=== PATIENT | male | born 1935 | race Two or more races ===

== ENCOUNTER 2020-01-07 13:42 | Inpatient (IN) | payer MEDICARE, BC ==
[~2020-01-07] VITALS: Ht 177.8 cm; Wt 49.7 kg
[~2020-01-07 13:42] MED LIST: HYDR25TA6 PO; LISI-167 PO
[2020-01-07 14:56] VITALS: BP 110/72
[2020-01-07] MEDS ORDERED: PLEASE ENTER HEIGHT AND WEIGHT MC SCH (15:00)
[2020-01-07] MEDS ORDERED: POLYETHYLENE GLYCOL 17 GM PACKET PO PRN (15:00)
[2020-01-07] MEDS ORDERED: BISACODYL 10 MG SUPP PR PRN (15:00)
[2020-01-07] MEDS ORDERED: DOCUSATE 100 MG CAPSULE PO PRN (15:00)
[2020-01-07] MEDS ORDERED: ONDANSETRON ODT 4 MG PO PRN (15:00)
[2020-01-07 18:22] LABS: CHOL/HDL RATIO 4.3; FREE T4 (FREE THYROXINE) 1.09 ng/dL (0.76-1.46); LDL/HDL RATIO 2.4 (0.5-3.0)
[2020-01-07 19:40] VITALS: BP 172/70
[2020-01-08 07:16] VITALS: BP 109/54
[2020-01-08 17:27] LABS: MICROSCOPIC NOT IND
[2020-01-08 17:38] LABS: CULTURE INDICATED? NO
[2020-01-08 19:18] VITALS: BP 124/64
[2020-01-09 07:05] VITALS: BP 117/61
[2020-01-09] MEDS: SERTRALINE 50MG TABLET PO SCH (08:36)
[2020-01-09] MEDS: ACETAMINOPHEN 325 MG TABLET PO PRN (08:36)
[2020-01-09 19:00] VITALS: BP 130/56
[2020-01-10 07:14] VITALS: BP 132/65
[2020-01-10] MEDS: SERTRALINE 50MG TABLET PO SCH (10:02)
[2020-01-10 19:15] VITALS: BP 134/61
[2020-01-11 07:27] VITALS: BP 122/56
[2020-01-11] MEDS: SERTRALINE 50MG TABLET PO SCH (08:35)
[2020-01-11 19:00] VITALS: BP 155/67
[2020-01-12 07:35] VITALS: BP 115/54
[2020-01-12] MEDS: SERTRALINE 50MG TABLET PO SCH (08:57)
[2020-01-12 19:00] VITALS: BP 120/80
[2020-01-13 07:20] VITALS: BP 129/55
[2020-01-13] MEDS: SERTRALINE 50MG TABLET PO SCH (08:44)
[2020-01-13 20:23] VITALS: BP 125/65
[2020-01-13] MEDS: ACETAMINOPHEN 325 MG TABLET PO PRN (21:33)
[2020-01-14 07:06] VITALS: BP 116/73
[2020-01-14] MEDS: SERTRALINE 50MG TABLET PO SCH (09:41)
[2020-01-14] MEDS: ACETAMINOPHEN 325 MG TABLET PO PRN (19:45)
[2020-01-14 19:55] VITALS: BP 120/54
[2020-01-15 07:00] VITALS: BP 138/61
[2020-01-15] MEDS: SERTRALINE 50MG TABLET PO SCH (08:25)
[2020-01-15 19:43] VITALS: BP 114/56
[2020-01-16 07:28] VITALS: BP 139/55
[2020-01-16] MEDS: SERTRALINE 50MG TABLET PO SCH (07:44)
[2020-01-16 19:29] VITALS: BP 114/71
[2020-01-17 07:46] VITALS: BP 137/68
[2020-01-17] MEDS: SERTRALINE 50MG TABLET PO SCH (08:37)
[2020-01-17 19:02] VITALS: BP 106/53
[2020-01-18 07:37] VITALS: BP 134/62
[2020-01-18] MEDS: SERTRALINE 50MG TABLET PO SCH (09:11)
[2020-01-18 19:15] VITALS: BP 120/80
[2020-01-19 07:29] VITALS: BP 104/42
[2020-01-19] MEDS: SERTRALINE 50MG TABLET PO SCH (09:04)
[2020-01-19 20:00] VITALS: BP 107/63
[2020-01-20 07:26] VITALS: BP 111/60
[2020-01-20] MEDS: SERTRALINE 50MG TABLET PO SCH (09:03)
[2020-01-20 19:46] VITALS: BP 138/62
[2020-01-20] MEDS: ACETAMINOPHEN 325 MG TABLET PO PRN (21:08)
[2020-01-21 07:48] VITALS: BP 95/49
[2020-01-21] MEDS: SERTRALINE 50MG TABLET PO SCH (08:20)
[2020-01-21 19:31] VITALS: BP 118/65
[2020-01-22 07:05] VITALS: BP 133/55
[2020-01-22] MEDS: SERTRALINE 50MG TABLET PO SCH (08:38)
[2020-01-22] MEDS ORDERED: SERT50TA28 PO (09:04)
[2020-01-22] MEDS ORDERED: MULT-484 PO (09:07)
[2020-01-22] MEDS ORDERED: MULTIVITAMINS/MINERALS TABLET PO SCH (09:30)
== END 2020-01-22 12:05 | disposition home or self-care (01) | DRG 885 ==
LOC: 3E 14:35
PROVIDERS: ADMIT Psychiatry & Neurology Psychosomatic Medicine; ATTEND Psychiatry & Neurology Psychosomatic Medicine
DX: F32.2 Major depressive disorder, single episode, severe without psychotic features (principal); R45.851 Suicidal ideations; F63.0 Pathological gambling; I10 Essential (primary) hypertension; H91.90 Unspecified hearing loss, unspecified ear; G47.00 Insomnia, unspecified; Z59.0 Homelessness; Z79.899 Other long term (current) drug therapy
CPT/HCPCS: 36415; 71045; 80061; 81003; 82140; 84439; 84443; 93005; 92523-GN

== ENCOUNTER 2020-08-07 05:58 | Emergency (ER) | payer MEDICARE, BC ==
[~2020-08-07] VITALS: Ht 177.8 cm; Wt 80.0 kg
[~2020-08-07 05:58] MED LIST changes: +MULT-484 PO; +SERT50TA28 PO
--- NOTE | 2020-08-07 06:28 | NUR ---
PT BIB [facility] FROM [facility] OF "NOT WANTING TO LIVE ANYMORE, I DONT HAVE A GOOD LIFE". PT STATED 3-4 MO HE HAD A PLAN OF JUMPING FROM A PARKING GARAGE AND THEN ENDED UP ADMITTED TO THE HOSPITAL FOR 15 DAYS. PT DENIES HAVING A PLAN THIS ADMIT. PT IS [place]LE[place], [place], AND STATING HE JUST WANTS HELP WITH MONEY MANAGEMENT AND SOMEONE TO HELP HIM "GET ON HIS FEET'. PT ALSO CLAIMS HE HAS A GAMBLING PROBLEM.
--- NOTE | 2020-08-07 06:31 | NUR ---
TUMOR REGISTRAR NOTIFIED OF SITTER REQUEST
--- NOTE | 2020-08-07 06:44 | NUR ---
[facility] REPORT BLOOD SUGAR 96
--- NOTE | 2020-08-07 06:46 | NUR ---
SMALL, DARK COLORED BUGS FOUND ON PATIENT AND COLLECTED. PT HAS SCRATCHES ON TORSO, CHEST, BILAT ARMS AND LEGS FROM CONSTANT ITCHING.
[2020-08-07 06:55] LABS: ALBUMIN 3.2 g/dL (3.4-5.0); ANION GAP 5 mmol/L (5-15); CALCIUM 8.6 mg/dL (8.5-10.1); CHLORIDE 108 mmol/L (98-107); CREATININE 1.26 mg/dL (0.7-1.3); SALICYLATE LEVEL < 1.7 mg/dL (2.8-20.0)
[2020-08-07] MEDS ORDERED: PERMETHRIN CRM 5%, 60GM TP SCH (07:00)
[2020-08-07 07:41] LABS: MEAN CORPUSCULAR HEMOGLOBIN 29.5 pg (27.5-34.5); MEAN CORPUSCULAR HGB CONC 32.2 g/dL (33.2-36.2); MEAN PLATELET VOLUME 7.8 fL (7.4-10.4); PLATELET COUNT 244 x10^3/uL (130-400); RED BLOOD COUNT 4.24 x10^6/uL (4.38-5.82); RED CELL DISTRIBUTION WIDTH 15.3 % (9.4-14.8)
[2020-08-07 08:11] LABS: MD YES
[2020-08-07 08:13] LABS: <PLATELET ESTIMATE> ADEQUATE; <PLT MORPHOLOGY> NORMAL PLT MORPH; <RBC MORPHOLOGY> NORMAL; EOS#(MANUAL) 2.46 x10^3/uL (0.0-0.4); EOS% (MANUAL) 28 % (1-7); LYMPHS% (MANUAL) 8 % (22-44); MONOS#(MANUAL) 0.62 x10^3/uL (0.3-2.7); MONOS% (MANUAL) 7 % (2-9); SEG#(MANUAL) 5.02 x10^3/uL (1.8-6.8); SEGS% (MANUAL) 57 % (42-75)
--- NOTE | 2020-08-07 08:31 | NUR ---
Pt resting, no complaints or needs at this time. Provided with urinal for UA. Pt agreeable and cooperative. Unable to perform breathlyzer test, blood draw ordered instead. VS updated. Will monitor.
--- NOTE | 2020-08-07 08:55 | NUR ---
UA sent to lab
--- NOTE | 2020-08-07 09:11 | NUR ---
Pt moved to shower for decon
--- NOTE | 2020-08-07 09:53 | NUR ---
Pt in room 3. Sleeping, lights turned down for comfort, sitter at bedside.
[2020-08-07 09:58] LABS: AMPHETAMINE SCREEN, URINE Negative (Negative); BARBITURATE SCREEN, URINE Negative (Negative); BENZODIAZEPINE SCREEN, URINE Negative (Negative); CANNABINOID SCREEN, URINE Negative (Negative); COCAINE SCREEN, URINE Negative (Negative); METHADONE SCREEN, URINE Negative (Negative); OPIATE SCREEN, URINE Negative (Negative)
--- NOTE | 2020-08-07 10:02 | NUR ---
Food tray ordered
--- NOTE | 2020-08-07 10:13 | NUR ---
Pt provided with breakfast tray
--- NOTE | 2020-08-07 10:34 | NUR ---
VS updated. Pt sleeping
--- NOTE | 2020-08-07 12:17 | NUR ---
Pt sleeping, appears comfortable. Sitter at bedside.
[2020-08-07 13:28] VITALS: BP 120/79
--- NOTE | 2020-08-07 13:29 | NUR ---
Pt watching TV, provided with coffee
--- NOTE | 2020-08-07 15:49 | NUR ---
Pt able to ambulate to restroom
--- NOTE | 2020-08-07 16:10 | NUR ---
Belongings double bagged, ready for transport. Report provided to TIFFANIE Ruiz.
== END 2020-08-07 17:38 | disposition other institution (70) ==
LOC: ED 15:05
DX: R45.851 Suicidal ideations (principal); F33.9 Major depressive disorder, recurrent, unspecified; Z72.9 Problem related to lifestyle, unspecified; I10 Essential (primary) hypertension
CPT/HCPCS: 36415; 80048; 80307; 82040; 85025; 99285

== ENCOUNTER 2020-08-07 15:30 | Inpatient (IN) | payer MEDICARE, BC ==
[~2020-08-07] VITALS: Ht 172.7 cm; Wt 51.6 kg
[2020-08-07] MEDS ORDERED: ACETAMINOPHEN 325 MG TABLET PO PRN (16:00)
[2020-08-07] MEDS ORDERED: BISACODYL 10 MG SUPP PR PRN (16:00)
[2020-08-07] MEDS ORDERED: POLYETHYLENE GLYCOL 17 GM PACKET PO PRN (16:00)
[2020-08-07] MEDS ORDERED: ONDANSETRON ODT 4 MG PO PRN (16:00)
[2020-08-07] MEDS ORDERED: DOCUSATE 100 MG CAPSULE PO PRN (16:00)
[2020-08-07] MEDS ORDERED: PLEASE ENTER HEIGHT AND WEIGHT MC SCH (18:00)
[2020-08-07 18:35] VITALS: BP 175/76
[2020-08-07 20:30] VITALS: BP 154/66
[2020-08-08] MEDS ORDERED: FLU VACC QS2020-21(6MOS UP)/PF 60MCG/0.5 ML SYR IM-VACC ONE (02:30)
[2020-08-08 05:25] LABS: ALBUMIN 2.9 g/dL (3.4-5.0)
[2020-08-08 05:39] LABS: BILIRUBIN, DIRECT 0.3 mg/dL (0.1-0.2); BILIRUBIN,INDIRECT 0.3 mg/dL (0.0-2.0); BILIRUBIN,TOTAL 0.6 mg/dL (0.2-1.0); CHOL/HDL RATIO 2.5; FREE T4 (FREE THYROXINE) 0.87 ng/dL (0.76-1.46); LDL/HDL RATIO 1.1 (0.5-3.0); TOTAL PROTEIN 5.7 g/dL (6.4-8.2)
[2020-08-08 07:29] VITALS: BP 116/68
[2020-08-08] MEDS ORDERED: DIPHENHYDRAMINE/ZINC CRM 2%, 30GM TP PRN (12:00)
[2020-08-08 20:19] VITALS: BP 148/69
[2020-08-09 07:43] VITALS: BP 114/62
[2020-08-09 20:16] VITALS: BP 151/70
[2020-08-10 07:29] VITALS: BP 132/62
[2020-08-10] MEDS: ACAMPROSATE 333 MG TABLET.DR PO SCH ×3 (12:12→21:01)
[2020-08-10] MEDS: VENLAFAXINE 75 MG CAP ER PO SCH (12:12)
[2020-08-10 20:11] VITALS: BP 156/66
[2020-08-11 07:29] VITALS: BP 156/67
[2020-08-11] MEDS: VENLAFAXINE 75 MG CAP ER PO SCH (09:39)
[2020-08-11] MEDS: ACAMPROSATE 333 MG TABLET.DR PO SCH ×3 (09:39→20:27)
[2020-08-11 20:06] VITALS: BP 145/67
[2020-08-12 07:27] VITALS: BP 165/68
[2020-08-12] MEDS: VENLAFAXINE 75 MG CAP ER PO SCH (08:40)
[2020-08-12] MEDS: ACAMPROSATE 333 MG TABLET.DR PO SCH ×3 (08:40→20:42)
[2020-08-12 19:04] VITALS: BP 144/73
[2020-08-13 07:30] VITALS: BP 172/69
[2020-08-13] MEDS: ACAMPROSATE 333 MG TABLET.DR PO SCH ×3 (10:03→20:23)
[2020-08-13] MEDS: VENLAFAXINE 75 MG CAP ER PO SCH (10:03)
[2020-08-13 18:28] VITALS: BP 171/65
[2020-08-14 06:58] VITALS: BP 147/68
[2020-08-14] MEDS: ACAMPROSATE 333 MG TABLET.DR PO SCH ×3 (09:34→20:54)
[2020-08-14] MEDS: AMLODIPINE 2.5 MG TABLET PO SCH (09:34)
[2020-08-14] MEDS: VENLAFAXINE 75 MG CAP ER PO SCH (09:34)
[2020-08-14 18:59] VITALS: BP 146/69
[2020-08-15] MEDS: VENLAFAXINE 75 MG CAP ER PO SCH (08:20)
[2020-08-15] MEDS: AMLODIPINE 2.5 MG TABLET PO SCH (08:20)
[2020-08-15] MEDS: ACAMPROSATE 333 MG TABLET.DR PO SCH ×3 (08:21→20:29)
[2020-08-15 08:53] VITALS: BP 113/65
[2020-08-15 19:55] VITALS: BP 132/67
[2020-08-16 07:14] VITALS: BP 129/69
[2020-08-16] MEDS: ACAMPROSATE 333 MG TABLET.DR PO SCH ×3 (08:36→20:55)
[2020-08-16] MEDS: VENLAFAXINE 75 MG CAP ER PO SCH (08:37)
[2020-08-16] MEDS: AMLODIPINE 2.5 MG TABLET PO SCH (08:37)
[2020-08-16 19:52] VITALS: BP 125/57
[2020-08-17 07:22] VITALS: BP 114/61
[2020-08-17] MEDS: AMLODIPINE 2.5 MG TABLET PO SCH (08:20)
[2020-08-17] MEDS: ACAMPROSATE 333 MG TABLET.DR PO SCH ×3 (08:20→21:07)
[2020-08-17] MEDS: VENLAFAXINE 75 MG CAP ER PO SCH (08:20)
[2020-08-17 19:08] VITALS: BP 120/58
[2020-08-18 07:18] VITALS: BP 138/63
[2020-08-18] MEDS: ACAMPROSATE 333 MG TABLET.DR PO SCH ×3 (08:26→20:14)
[2020-08-18] MEDS: VENLAFAXINE 75 MG CAP ER PO SCH (08:26)
[2020-08-18] MEDS: AMLODIPINE 2.5 MG TABLET PO SCH (08:26)
[2020-08-18 19:38] VITALS: BP 132/68
[2020-08-19 07:23] VITALS: BP 126/58
[2020-08-19] MEDS: ACAMPROSATE 333 MG TABLET.DR PO SCH ×3 (10:23→20:28)
[2020-08-19] MEDS: AMLODIPINE 2.5 MG TABLET PO SCH (10:23)
[2020-08-19] MEDS: VENLAFAXINE 75 MG CAP ER PO SCH (10:23)
[2020-08-19 18:51] VITALS: BP 137/67
[2020-08-20 07:23] VITALS: BP 134/66
[2020-08-20] MEDS: ACAMPROSATE 333 MG TABLET.DR PO SCH ×3 (08:09→20:07)
[2020-08-20] MEDS: AMLODIPINE 2.5 MG TABLET PO SCH (08:09)
[2020-08-20] MEDS: VENLAFAXINE 75 MG CAP ER PO SCH (08:09)
[2020-08-20 19:03] VITALS: BP 130/64
[2020-08-21 07:00] VITALS: BP 143/64
[2020-08-21] MEDS: VENLAFAXINE 75 MG CAP ER PO SCH (08:17)
[2020-08-21] MEDS: AMLODIPINE 2.5 MG TABLET PO SCH (08:17)
[2020-08-21] MEDS: ACAMPROSATE 333 MG TABLET.DR PO SCH ×3 (08:17→20:29)
[2020-08-21 19:27] VITALS: BP 159/79
[2020-08-22 07:12] VITALS: BP 111/61
[2020-08-22] MEDS: ACAMPROSATE 333 MG TABLET.DR PO SCH ×3 (08:09→20:20)
[2020-08-22] MEDS: AMLODIPINE 2.5 MG TABLET PO SCH (08:09)
[2020-08-22] MEDS: VENLAFAXINE 75 MG CAP ER PO SCH (08:09)
[2020-08-22 19:23] VITALS: BP 120/71
[2020-08-23 07:27] VITALS: BP 129/67
[2020-08-23] MEDS: ACAMPROSATE 333 MG TABLET.DR PO SCH ×3 (08:57→20:34)
[2020-08-23] MEDS: AMLODIPINE 2.5 MG TABLET PO SCH (08:57)
[2020-08-23] MEDS: VENLAFAXINE 75 MG CAP ER PO SCH (08:57)
[2020-08-23 19:34] VITALS: BP 109/64
[2020-08-24 07:05] VITALS: BP 124/64
[2020-08-24] MEDS: AMLODIPINE 2.5 MG TABLET PO SCH (08:13)
[2020-08-24] MEDS: ACAMPROSATE 333 MG TABLET.DR PO SCH ×3 (08:13→20:24)
[2020-08-24] MEDS: VENLAFAXINE 75 MG CAP ER PO SCH (08:13)
[2020-08-24 20:01] VITALS: BP 124/64
[2020-08-25 07:10] VITALS: BP 116/61
[2020-08-25] MEDS: ACAMPROSATE 333 MG TABLET.DR PO SCH ×3 (08:30→20:03)
[2020-08-25] MEDS: VENLAFAXINE 75 MG CAP ER PO SCH (08:30)
[2020-08-25] MEDS: AMLODIPINE 2.5 MG TABLET PO SCH (08:30)
[2020-08-25 18:53] VITALS: BP 128/72
[2020-08-26 07:20] VITALS: BP 124/62
[2020-08-26] MEDS: VENLAFAXINE 75 MG CAP ER PO SCH (09:55)
[2020-08-26] MEDS: ACAMPROSATE 333 MG TABLET.DR PO SCH ×3 (09:55→20:56)
[2020-08-26] MEDS: AMLODIPINE 2.5 MG TABLET PO SCH (09:55)
[2020-08-26 19:35] VITALS: BP 124/64
[2020-08-27 07:43] VITALS: BP 111/61
[2020-08-27] MEDS: ACAMPROSATE 333 MG TABLET.DR PO SCH ×3 (09:00→20:29)
[2020-08-27] MEDS: AMLODIPINE 2.5 MG TABLET PO SCH (09:00)
[2020-08-27] MEDS: VENLAFAXINE 75 MG CAP ER PO SCH (09:00)
[2020-08-27 19:11] VITALS: BP 122/64
[2020-08-28 07:16] VITALS: BP 127/72
[2020-08-28] MEDS: AMLODIPINE 2.5 MG TABLET PO SCH (07:49)
[2020-08-28] MEDS: VENLAFAXINE 75 MG CAP ER PO SCH (07:49)
[2020-08-28] MEDS: ACAMPROSATE 333 MG TABLET.DR PO SCH ×3 (07:49→20:58)
[2020-08-28 19:30] VITALS: BP 120/72
[2020-08-29] MEDS: AMLODIPINE 2.5 MG TABLET PO SCH (07:32)
[2020-08-29] MEDS: VENLAFAXINE 75 MG CAP ER PO SCH (07:32)
[2020-08-29] MEDS: ACAMPROSATE 333 MG TABLET.DR PO SCH ×3 (07:32→20:25)
[2020-08-29 07:33] VITALS: BP 93/59
[2020-08-29 19:46] VITALS: BP 147/77
[2020-08-30 07:32] VITALS: BP 149/62
[2020-08-30] MEDS: ACAMPROSATE 333 MG TABLET.DR PO SCH ×3 (08:27→20:23)
[2020-08-30] MEDS: AMLODIPINE 2.5 MG TABLET PO SCH (08:27)
[2020-08-30] MEDS: VENLAFAXINE 75 MG CAP ER PO SCH (08:27)
[2020-08-30 19:23] VITALS: BP 126/64
[2020-08-31 07:20] VITALS: BP 119/65
[2020-08-31] MEDS: VENLAFAXINE 75 MG CAP ER PO SCH (08:05)
[2020-08-31] MEDS: ACAMPROSATE 333 MG TABLET.DR PO SCH (08:05)
[2020-08-31] MEDS: AMLODIPINE 2.5 MG TABLET PO SCH (08:05)
[2020-08-31] MEDS ORDERED: ACAM333T7 PO (15:33)
[2020-08-31] MEDS ORDERED: VENL75CA6 PO (15:33)
[2020-08-31] MEDS ORDERED: AMLO2.5T5 PO (15:33)
[2020-08-31] MEDS ORDERED: MULT-484 PO (15:33)
== END 2020-08-31 11:00 | disposition home or self-care (01) | DRG 885 ==
LOC: 3E 17:44
PROVIDERS: ADMIT Psychiatry & Neurology Psychosomatic Medicine; ATTEND Psychiatry & Neurology Psychosomatic Medicine
DX: F33.3 Major depressive disorder, recurrent, severe with psychotic symptoms (principal); R45.851 Suicidal ideations; I10 Essential (primary) hypertension; D64.9 Anemia, unspecified; Z20.828 Contact with and (suspected) exposure to other viral communicable diseases; Z59.0 Homelessness; Z79.899 Other long term (current) drug therapy; H91.90 Unspecified hearing loss, unspecified ear; F63.0 Pathological gambling; Z56.0 Unemployment, unspecified
CPT/HCPCS: 36415; 71045; 80061; 80076; 82140; 84439; 84443; 87635; 90686; 93005